=== PATIENT | female | born 1975 | race Caucasian/White ===

== ENCOUNTER 2021-05-04 09:34 | Outpatient (CLI) | payer OTHER | END 2021-05-04 10:00 | disposition home or self-care (01) | LOC: RAD 09:34 | PROVIDERS: ATTEND Physical Medicine & Rehabilitation | DX: M54.12 Radiculopathy, cervical region (principal); M25.512 Pain in left shoulder | CPT/HCPCS: 72141 ==

== ENCOUNTER 2021-08-30 13:15 | Outpatient (CLI) | payer OTHER | END 2021-08-30 13:31 | disposition home or self-care (01) | LOC: MAMO-SONO 13:15 | PROVIDERS: ATTEND Obstetrics & Gynecology | DX: Z12.31 Encounter for screening mammogram for malignant neoplasm of breast (principal); N60.11 Diffuse cystic mastopathy of right breast; N60.12 Diffuse cystic mastopathy of left breast ==

== ENCOUNTER 2023-05-28 08:12 | Outpatient (CLI) | payer OTHER | END 2023-05-28 08:28 | disposition home or self-care (01) | LOC: SONOGRAMA 08:12 | DX: N18.9 Chronic kidney disease, unspecified (principal) ==

== ENCOUNTER 2025-01-01 09:10 | Outpatient (CLI) | payer OTHER | END 2025-01-01 09:28 | disposition home or self-care (01) | LOC: MAMO-SONO 09:10 | PROVIDERS: ATTEND Obstetrics & Gynecology | DX: N60.11 Diffuse cystic mastopathy of right breast (principal); N60.12 Diffuse cystic mastopathy of left breast; N60.19 Diffuse cystic mastopathy of unspecified breast ==